=== PATIENT | male | born 1935 | race Caucasian/White ===

== ENCOUNTER 2017-10-21 20:19 | Observation (INO) | payer OTHER, MEDICARE ==
[~2017-10-21] VITALS: Ht 177.8 cm; Wt 71.5 kg
[~2017-10-21 20:19] MED LIST: ADULT ASPIRIN R81 MG PO; ALTACE10 MG PO; ASPIRIN81 M1 PO; ATENOLOL50 MG PO; CARDIZEM90 MG PO; CENTRUM SILV1 TABLET PO; CO Q-10100 MG PO; FIBER LAXATIVE; IMDUR120 MG PO; LIPITOR40 MG PO; Omnicef PO; Plavix PO; TENORMIN50 MG PO; XANAX0.25 MG PO; ZETIA10 MG PO; Zithromax PO; predniSONE PO; prednisone
[2017-10-21 20:39] LABS: BASOPHIL (%) 0.1 % (0-1); EOSINOPHIL (%) 0.1 % (0-5); HEMATOCRIT 36.6 % (38.0-50.0); HEMOGLOBIN 12.7 G/DL (12.5-16.6); IMMATURE GRANULOCYTE (%) 0.7 % (0.0-0.7); LYMPHOCYTE COUNT 2.9 K/uL (1.0-2.8); MCHC 34.7 G/DL (30.0-36.0); MCV 98.1 FL (86-99); MONOCYTE (%) 6.4 % (3-12); MONOCYTE COUNT 0.8 K/uL (0-0.8); NEUTROPHIL (%) 69.7 % (45-76); NEUTROPHIL COUNT 8.7 K/uL (1.8-6.4); PLATELET COUNT 176 K/uL (156-360); RBC DIS.WIDTH-CV 13.2 % (11.8-14.6); RBC DIS.WIDTH-SD 48.1 % (39-53); RED BLOOD COUNT 3.73 M/uL (4.00-5.50); WHITE BLOOD COUNT 12.4 K/uL (4.1-10.2)
[2017-10-21 20:49] LABS: AMYLASE 48 IU/L (1-118); CHLORIDE 102 mEq/L (99-109); POTASSIUM 4.7 mEq/L (3.7-5.4); SODIUM 137 mEq/L (136-147)
[2017-10-21 20:51] LABS: GLUCOSE 377 mg/dL (70-99)
[2017-10-21 20:54] LABS: GFR ESTIMATE (CALCULATED) 34 mL/min/ (58.99-99999); SERUM ETHYL ALCOHOL < 10 mg/dL
[2017-10-21 20:55] LABS: UREA NITROGEN (BUN) 38 mg/dL (9-23)
[2017-10-21 20:57] LABS: LIPASE 54 U/L (1.0-51.0)
[2017-10-21 21:03] LABS: TROP-I INTERPRETATION NEGATIVE; TROPONIN-I 0.15 ng/mL (0.0-0.30)
[2017-10-21] MEDS ORDERED: NITRO-DUR1 EAC1 TD (21:45)
[2017-10-21] MEDS ORDERED: CARTIA XT180 MG PO (21:47)
[2017-10-21] MEDS ORDERED: CENTRUM SILVER1 EAC3 PO (21:47)
[2017-10-21] MEDS ORDERED: CO Q-10100 MG PO (21:47)
[2017-10-21] MEDS ORDERED: METFORMIN HCL500 MG PO (21:47)
[2017-10-21] MEDS ORDERED: NITROSTAT0.4 MG SL (21:47)
[2017-10-21] MEDS ORDERED: PLAVIX75 MG PO (21:48)
[2017-10-21 22:04] LABS: PTT 16.6 SEC (25-37)
[2017-10-21 23:20] LABS: APPEARANCE CLEAR ((CLEAR)); BILIRUBIN NEGATIVE; BLOOD SMALL; COLOR YELLOW ((YELLOW)); GLUCOSE (STRIP) >=500; KETONES NEGATIVE; LEUKOCYTES NEGATIVE; NITRITE NEGATIVE; PROTEIN (STRIP) 30; SPECIFIC GRAVITY 1.025 (1.000-1.030); UROBILINOGEN 0.2 MG/DL (0.2-1.0)
[2017-10-21 23:23] LABS: BACTERIA NONE SEEN /HPF; EPITHELIAL CELLS NONE SEEN /HPF; HYALINE CASTS 0-5 /LPF; MUCUS NONE SEEN /LPF; RED BLOOD CELLS 0-5 /HPF (0-5); UCUL ADDED? NO; WHITE BLOOD CELLS 0-5 /HPF (0-5)
[2017-10-22 00:55] VITALS: BP 168/72
[2017-10-22 03:13] LABS: TROP-I INTERPRETATION POSITIVE
[2017-10-22 03:15] LABS: TROPONIN-I 6.97 ng/mL (0.0-0.30)
[2017-10-22 04:06] VITALS: BP 169/73
[2017-10-22 08:05] VITALS: BP 170/82
[2017-10-22 10:36] LABS: TROP-I INTERPRETATION POSITIVE; TROPONIN-I 22.31 ng/mL (0.0-0.30)
[2017-10-22 10:47] LABS: INTER. NORMALIZED RATIO 1.1
[2017-10-22 11:07] LABS: PTT 85.6 SEC (25-37)
[2017-10-22 11:30] LABS: CHLORIDE 109 MEQ/L (99-109); GFR ESTIMATE (CALCULATED) 56 mL/min/ (58.99-99999); POTASSIUM 4.1 MEQ/L (3.7-5.4); SODIUM 139 MEQ/L (136-147); UREA NITROGEN (BUN) 32 mg/dL (9-23)
[2017-10-22 11:32] LABS: CREATININE 1.3 MG/DL (0.6-1.3); GLUCOSE 161 mg/dL (70-99)
[2017-10-22 11:36] VITALS: BP 159/72
[2017-10-22 15:24] VITALS: BP 190/81
== END 2017-10-22 15:40 | disposition short-term general hospital (02) ==
LOC: EME → EDBD 20:19 → EDOF 22:51 → 4SOUTH 22:51 → EDOF 22:51 → ENRESERV 22:54 → 4SOUTH 23:53
PROVIDERS: Emergency Medicine; Internal Medicine; Physician Assistant
DX: I21.4 Non-ST elevation (NSTEMI) myocardial infarction (principal); I25.10 Atherosclerotic heart disease of native coronary artery without angina pectoris; Z95.1 Presence of aortocoronary bypass graft; Z95.5 Presence of coronary angioplasty implant and graft; I25.2 Old myocardial infarction; I35.0 Nonrheumatic aortic (valve) stenosis; E78.5 Hyperlipidemia, unspecified; I12.9 Hypertensive chronic kidney disease with stage 1 through stage 4 chronic kidney disease, or unspecified chronic kidney disease; N18.9 Chronic kidney disease, unspecified; N17.9 Acute kidney failure, unspecified; E11.22 Type 2 diabetes mellitus with diabetic chronic kidney disease; Z79.82 Long term (current) use of aspirin; Z79.02 Long term (current) use of antithrombotics/antiplatelets; Z79.84 Long term (current) use of oral hypoglycemic drugs; Z82.49 Family history of ischemic heart disease and other diseases of the circulatory system
CPT/HCPCS: 71045; 80048; 81003; 82150; 82948; 83690; 84484; 85025; 85610; 85730; 86850; 86900; 86901; 93005; 99281; 99285; G0378; G0480; J7030